=== PATIENT | male | born 1970 | race Caucasian/White ===

== ENCOUNTER 2019-06-01 21:09 | Inpatient (IN) | payer MEDICARE, MEDICAID ==
[~2019-06-01] VITALS: Ht 188 cm; Wt 131.0 kg
[2019-06-01] MEDS ORDERED: ATOR40TA75 PO (22:08)
[2019-06-01] MEDS ORDERED: BENZ-52 PO (22:08)
[2019-06-01] MEDS ORDERED: DESM0.1T2 PO (22:08)
[2019-06-01] MEDS ORDERED: QUET300T53 PO (22:08)
[2019-06-01] MEDS ORDERED: QUET100T2 PO (22:08)
[2019-06-01] MEDS ORDERED: DIVA500T9 PO (22:08)
[2019-06-01] MEDS ORDERED: TRAZ-186 PO (22:08)
[2019-06-01] MEDS ORDERED: RANI15TA PO (22:10)
[2019-06-01] MEDS ORDERED: LISI10TA4 PO (22:10)
[2019-06-01] MEDS ORDERED: MOM 30ML SUSPENSION UDC PO PRN (23:15)
[2019-06-01] MEDS ORDERED: MAALOX 30 ML SUSP *UDC PO PRN (23:15)
[2019-06-01] MEDS ORDERED: ACETAMINOPHEN TAB 650MG DOSE (2X325MG) PO PRN (23:15)
[2019-06-01] MEDS ORDERED: traZODone 50 MG TAB PO PRN (23:15)
[2019-06-02 00:28] VITALS: BP 134/80
[2019-06-02 06:29] VITALS: BP 148/84
[2019-06-02] MEDS: ATORVASTATIN 20 MG TAB PO SCH (08:09)
[2019-06-02] MEDS: DESMOPRESSIN ACETATE 0.1 MG TAB PO SCH ×2 (08:09→20:05)
[2019-06-02] MEDS: FAMOTIDINE 20 MG TAB PO SCH (08:10)
[2019-06-02] MEDS: lisinopriL 10 MG TAB PO SCH (08:10)
[2019-06-02] MEDS: BENZTROPINE 1 MG TAB PO SCH ×2 (08:12→20:05)
--- NOTE | 2019-06-02 09:25 | CR.PDOC ---
General Date of Consultation: Jun 02, 2019 Referring Provider: Sasha Castro MD Consultation REASON FOR CONSULTATION/CHIEF COMPLAINT: Medical management. HISTORY OF PRESENT ILLNESS: 48 years old, male with past medical history of hypertension, hyperlipidemia, asthma on DDAVP for unknown diagnosis was transferred from [facility] for direct admission to our inpatient mental health unit with the diagnosis of suicidal ideations. Patient declines any suicidal or homicidal ideations or plans at the present time. Patient declines any medical complaints such as shortness of breath, chest pain, nausea, vomiting, diarrhea, syncope, polyuria, polydipsia, etc.. ALLERGIES: Please see below. HOME MEDICATIONS: Please see below. PAST MEDICAL HISTORY: , Hypertension, hyperlipidemia, asthma, Patient is also on DDAVP for unknown diagnosis PAST SURGICAL HISTORY: Tonsillectomy, hernia repair FAMILY HISTORY: Family history revealed no history of diagnoses, diabetes or cancer SOCIAL HISTORY: Lives with family history of smoking 1 pack per day for many years. Also smoking marijuana and had some alcohol before coming to ED and [facility] with suicidal ideations REVIEW OF SYSTEMS: CONSTITUTIONAL: . No suicidal ideations or plans. HEENT: Headache, eye pain or ear pain. CARDIOVASCULAR: . No chest pain or palpitation. RESPIRATORY: , No shortness of breath or cough. a. GENITOURINARY: No polyuria or dysuria. MUSCULOSKELETAL: No muscle aches and pains. GASTROINTESTINAL: No nausea, vomiting, diarrhea . SKIN: No rash. NEUROLOGICAL: . No focal motor sensory deficit or headache. PSYCHIATRIC: , Not suicidal or homicidal. ENDOCRINE: Questionable history of diabetes insipidus. HEMATOLOGIC/LYMPHATIC: No history of anemia. ALLERGIC/IMMUNOLOGIC: , No history of his allergies. PHYSICAL EXAMINATION: VITAL SIGNS: Please see below. GENERAL APPEARANCE: Normal. HEENT: PERRLA, extra ocular muscles intact. RESPIRATORY: Clear to A&P. CARDIOVASCULAR: S1, S2, regular. ABDOMEN: , Soft, nontender, bowel sounds present. EXTREMITIES: No clubbing, cyanosis, edema. NEUROLOGICAL: . . No focal motor sensory deficit PSYCHIATRIC: . No suicidal or homicidal ideations. No agitation. LABORATORY DATA: Please see below. ASSESSMENT/PLAN: #1. Suicidal ideation with history of schizoaffective disorder and bipolar disorder Patient is currently asymptomatic, does not offer any complaints of suicidal or homicidal ideations or plans Individual and group counseling Further psychiatric management as per psych #2. Hypertension Under control with current home meds #3. Hyperlipidemia Under control with home meds #4 on DDAVP for possible diabetes as previous Continue present meds #5. Nicotine addiction Smoking cessation counseling was done. Patient declined nicotine replacement Vital Signs/I&O Vital Signs Date Time Temp Pulse Resp B/P (MAP) Pulse Ox O2 Delivery O2 Flow Rate FiO2 06/02/19 08:10 139/72 06/02/19 06:29 97.4 84 18 98 Room Air Allergies Coded Allergies: No Known Allergies (Unverified , 06/01/19) Home Medications Scheduled Atorvastatin Calcium (Atorvastatin Calcium) 40 Mg Tablet, 40 MG PO DAILY, (Reported) Benztropine Mesylate (Benztropine Mesylate) 1 Mg Tablet, 1 MG PO BID, (Reported) Desmopressin Acetate (Desmopressin Acetate) 0.1 Mg Tablet, 0.1 MG PO BID for , (Reported) Divalproex Sodium (Divalproex Sodium ER) 500 Mg Tab.er.24h, 500 MG PO DAILY, (Reported) Lisinopril (Lisinopril) 10 Mg Tablet, 10 MG PO DAILY, (Reported) Quetiapine Fumarate (Quetiapine Fumarate ER) 300 Mg Tab.er.24h, 300 MG PO QPM, (Reported) Ranitidine Hcl (Ranitidine HCl) 150 Mg Tablet, 1 TAB PO DAILY, (Reported) Trazodone HCl (Trazodone HCl) 50 Mg Tablet, 50 MG PO QPM, (Reported) Scheduled PRN Quetiapine Fumarate (Quetiapine Fumarate) 100 Mg Tablet, 100 MG PO DAILY PRN for ANXIETY/AGITATION, (Reported) ROBYN RHODES MD Jun 02, 2019 09:25
[2019-06-02 10:43] VITALS: BP 146/90
[2019-06-02 16:17] VITALS: BP 140/90
[2019-06-02] MEDS ORDERED: QUEtiapine 300 MG XR TABLET(SEROQUEL XR) PO SCH (21:00)
--- NOTE | 2019-06-02 22:00 | MHHPE ---
DATE OF ADMISSION: 06/02/2019 This is a Telemedicine video assessment. CHIEF COMPLAINT: Feels suicidal. SUBJECTIVE: He is 48 years old, has a long history of emotional difficulties, has been diagnosed with schizoaffective disorder. Was seen in [place] and has had several hospitalizations there at [facility] ([facility]). He was there a few days ago, discharged recently, and after a couple of days, started drinking and using cannabis. Says the cannabis may have been laced, he is not quite sure what with. He began being more distraught, angry and upset. Began hearing voices. Says wanted to hurt himself, hurt others as well, but nobody in particular. He had gone to [facility], where he usually goes. He says there were no beds there, so he was transferred here. He is on Seroquel 300 mg in the evening, and also takes 100 mg as needed extra when agitated. He is also on Cogentin at 1 mg twice a day and trazodone at 50 mg at night. Says was on Depakote, that was discontinued recently, and lithium, as he overdosed on them in the last few months, and ended up in the intensive care unit (ICU) for a couple of days. He sys his psychiatrist decided to stop those medicines. Says feels better now that he is off the drugs. Says has friends who drink and use cannabis. He feels he needs new friends. Has support, a girlfriend who he sees fairly regularly. The patient's father lives in the area as well. Says he generally gets along with him. He apparently walked to [facility] just wearing socks, no shoes. This was a few days after discharge. Had been drinking and smoking marijuana. PAST PSYCHIATRIC HISTORY: Has had several inpatient hospitalizations at [facility] in [place]. He is seen as an outpatient in that area as well. Says had admissions from a relatively early age and at least for the last 20 years off and on, per the patient. I do not have access to previous records from [place]. Says he attends his appointments and has a hospice home care coordinator as well. SUBSTANCE ABUSE HISTORY: Has a history of misusing cannabis and alcohol. Says has tried staying away from it. Unclear if he has had any formal substance abuse treatment. MEDICAL HISTORY: Has a history of hypertension, hyperlipidemia, asthma and takes desmopressin. Is unclear why. SOCIAL HISTORY: Lives in the [facility]. He is on his own. He continues to have support from his girlfriend. Says he is in touch with his father fairly regularly. He says he has not had any contact with his mother for a while. He says she lives somewhere in [place]. He says that he graduated high school, but did not go into details. MENTAL STATUS EXAMINATION: He is seen in the presence of staff. He is cooperative. He is quite neat. There is no agitation. No psychomotor retardation. Appears mildly fidgety at times. Answers questions logically and coherently. Affect is restricted in range. Denies any suicidal thoughts or intents. No homicidal ideas or intents at present. Does not appear to be internally preoccupied at present. No overt delusions elicited. Has a limited range of affect. He is alert, oriented to time, place and person. He can spell the word house forwards and backwards. He can recall 2/3 objects after five minutes. Intellect is average at best. Judgment and insight are compromised. ASSESSMENT: 1. Schizoaffective disorder, bipolar type by history, most recent episode depressed, possibly with psychotic features. 2. Cannabis use disorder. 3. Alcohol use disorder. 4. Long history of psychiatric difficulties. 5. Enduring circumstances. Just recently been discharged from the hospital and had started drinking and using cannabis again, and this may have further destabilized his moods, including exacerbating or inducing perceptual disturbances. PLAN: He is admitted to the inpatient psychiatric unit. Patient is on relevant precautions. We will look at obtaining collateral information. We will continue his current medication regimen, including the Seroquel at 300 mg at night. He will be encouraged to engage in activities in the unit. He has been seen by the hospitalist and he will be discharged with followup once he is stable. Coordinating discharge will be important, and part of that can commence from tomorrow. I anticipate a 3-5 day stay. VITAL SIGNS: Blood pressure 140/90, pulse 78, temperature 97.5. The assessment took 30 minutes.
[2019-06-03 06:09] VITALS: BP 137/60
[2019-06-03 06:57] LABS: BASO % 0.4 % (0.0-1.0); EOS # 0.1 10^3/uL (0.0-0.5); EOS % 1.4 % (0.0-3.0); HEMOGLOBIN 15.4 g/dl (13.5-17.5); LYMPH # 1.5 10^3/uL (1.5-5.0); LYMPH % 19.7 % (24.0-44.0); MEAN CORPUSCULAR HEMOGLOBIN 30.1 pg (27.0-33.0); MEAN CORPUSCULAR VOLUME 86.1 fl (80.0-96.0); MONO # 0.5 10^3/uL (0.0-0.8); MONO % 6.3 % (0.0-5.0); NEUTROPHILS # 5.6 10^3/uL (1.5-8.5); NEUTROPHILS % 71.7 % (36.0-66.0); PLATELET COUNT, AUTOMATED 207 10^3/uL (150-450); RED BLOOD COUNT 5.11 10^6/uL (4.30-6.10); WHITE BLOOD COUNT 7.8 10^3/uL (4.0-10.0)
[2019-06-03 07:26] LABS: ALBUMIN 3.6 GM/DL (3.2-5.2); ALT/SGPT 44 U/L (12-78); BILIRUBIN,TOTAL 0.4 MG/DL (0.2-1.0); BLOOD UREA NITROGEN 15 MG/DL (7-18); CALCIUM LEVEL 9.5 MG/DL (8.5-10.1); CARBON DIOXIDE LEVEL 27 MEQ/L (21-32); CHLORIDE LEVEL 104 MEQ/L (98-107); CREATININE FOR GFR 0.82 MG/DL (0.70-1.30); GLOMERULAR FILTRATION RATE > 60.0 (>60); GLUCOSE, FASTING 112 MG/DL (70-100); MAGNESIUM LEVEL 2.1 MG/DL (1.8-2.4); POTASSIUM SERUM 4.5 MEQ/L (3.5-5.1); SODIUM LEVEL 138 MEQ/L (136-145)
[2019-06-03 08:44] VITALS: BP 135/90
[2019-06-03] MEDS: FAMOTIDINE 20 MG TAB PO SCH (08:44)
[2019-06-03] MEDS: lisinopriL 10 MG TAB PO SCH (08:44)
[2019-06-03] MEDS: BENZTROPINE 1 MG TAB PO SCH (08:44)
[2019-06-03] MEDS: DESMOPRESSIN ACETATE 0.1 MG TAB PO SCH (08:44)
[2019-06-03] MEDS: ATORVASTATIN 20 MG TAB PO SCH (08:44)
--- NOTE | 2019-06-03 10:35 | MHDSPDOC ---
[facility] Discharge Summary Discharge Summary DATE OF ADMISSION: Jun 01, 2019 at 23:09 DATE OF DISCHARGE: DISCHARGE DIAGNOSES: 1. . 2. . REASON FOR ADMISSION: CONSULTANTS INVOLVED: TREATMENT AND PROGRESS ON THE UNIT : . HOSPITAL COURSE: DISCHARGE ASSESSMENT: MENTAL STATUS EXAMINATION ON DISCHARGE: Patient is a -year old male, who is . Speech is . Language skills are . Thought processes including: . Thought content: . Abstract reasoning, and computation: . Description of associations: . Description of abnormal or psychotic thoughts: . Judgment: . Insight: . Orientation to . Recent and remote memory: . Attention span and concentration: . Language: . Fund of knowledge: . Mood: . Affect: . MEDICATIONS ON DISCHARGE: - for . - for . - for . PLAN/FOLLOWUP ARRANGEMENTS: . The amount of time spent in the coordination of care for this patient was approximately minutes. Vital Signs/I&Os Vital Signs Date Time Temp Pulse Resp B/P (MAP) Pulse Ox O2 Delivery O2 Flow Rate FiO2 06/03/19 08:44 135/90 06/03/19 06:09 97.8 76 14 98 Room Air Laboratory Data Labs 24H Laboratory Tests 2 06/03/19 06:23: Immature Granulocyte % (Auto) 0.5, Neutrophils (%) (Auto) 71.7H, Lymphocytes (%) (Auto) 19.7L, Monocytes (%) (Auto) 6.3H, Eosinophils (%) (Auto) 1.4, Basophils (%) (Auto) 0.4, Neutrophils # (Auto) 5.6, Lymphocytes # (Auto) 1.5, Monocytes # (Auto) 0.5, Eosinophils # (Auto) 0.1, Basophils # (Auto) 0.0, Nucleated Red Blood Cells % (auto) 0.0, Anion Gap 7L, Glomerular Filtration Rate > 60.0, Calcium Level 9.5, Magnesium Level 2.1, Total Bilirubin 0.4, Aspartate Amino Transf (AST/SGOT) 17, Alanine Aminotransferase (ALT/SGPT) 44, Alkaline Phosphatase 103, Total Protein 7.0, Albumin 3.6, Albumin/Globulin Ratio 1.06 CBC/BMP Laboratory Tests 06/03/19 06:23 Medications Scheduled Atorvastatin Calcium (Atorvastatin Calcium) 40 Mg Tablet, 40 MG PO DAILY, (Reported) Benztropine Mesylate (Benztropine Mesylate) 1 Mg Tablet, 1 MG PO BID, (Reported) Desmopressin Acetate (Desmopressin Acetate) 0.1 Mg Tablet, 0.1 MG PO BID for , (Reported) Divalproex Sodium (Divalproex Sodium ER) 500 Mg Tab.er.24h, 500 MG PO DAILY, (Reported) Lisinopril (Lisinopril) 10 Mg Tablet, 10 MG PO DAILY, (Reported) Nicotine (Nicoderm Cq) 21 Mg/24 Hr Patch.td24, 1 PATCH TOP DAILY for smoking cessation for 28 Days, #28 Quetiapine Fumarate (Quetiapine Fumarate ER) 300 Mg Tab.er.24h, 300 MG PO QPM, (Reported) Ranitidine Hcl (Ranitidine HCl) 150 Mg Tablet, 1 TAB PO DAILY, (Reported) Trazodone HCl (Trazodone HCl) 50 Mg Tablet, 50 MG PO QPM, (Reported) Scheduled PRN Quetiapine Fumarate (Quetiapine Fumarate) 100 Mg Tablet, 100 MG PO DAILY PRN for ANXIETY/AGITATION, (Reported) Allergies Coded Allergies: No Known Allergies (Unverified , 06/01/19) KEVEN BORREGO DO Jun 03, 2019 10:35
[2019-06-03] MEDS ORDERED: NICO21DI6 TOP (10:37)
--- NOTE | 2019-06-03 10:37 | MHDSPDOC ---
[facility] Discharge Summary Discharge Summary DATE OF ADMISSION: Jun 01, 2019 at 23:09 DATE OF DISCHARGE: 06/03/19 Discharge Maximilian Ruffin MRN: N/A Date of : N/A Date of Service: 06/03/2019 Diagnoses Unspecified psychotic disorder. Cannabis use disorder, severe. Alcohol use disorder, unspecified. Psychosocial stressors of uncertain origin. History of Present Illness 48-year-old man with a history of reported schizoaffective disorder, presents after using cannabis that he feels was laced with as yet unknown substances, becoming mildly psychotic after hearing voices stating that he had wanted to hurt himself and was admitted out of an abundance of caution, transferred from [facility]. Consultants Involved Hospitalist/PCP screening Treatment and Progress On The Unit The patient was admitted to the inpatient mental health unit out of an abundance of caution. He was resumed on his home medications of Seroquel 300 mg at night and tolerated this quite well. He had no difficulties attending to groups and generally denied any suicide or homicidal ideation. His resolution was precipitous and quick as would be expected in a substance-induced psychosis. He otherwise did well with no notable problems. Discharge Assessment 48-year-old man with likely substance-induced, psychosis presents after using cannabis that he was claiming was laced with as an yet unknown substance, a common presentation with synthetics, resolving quickly once being resumed on home Seroquel without any major involvement other than resumption of his home medications. The patient at the time of discharge did not meet criteria for involuntary admission/extension due to having a normal mental status exam, fair insight into the situation, They are engaged in the discharge process, as well as being friendly and amenable in behavioral control and havent been engaging in any observed concerning behavior or ideation recently. They decline voluntary extension/admission at this time and must be discharged in good edith, as Im unable to make a case for holding the patient against their will. They may have historical risk factors of admissions and other interactions with psychiatry however, those are not modifiable from a clinical perspective. The patient will need to be discharged in good edith. Mental Status Examination General: Well dressed with good hygiene Speech: Spontaneous and fluid Thought processes: Linear and logical MSK: Smooth and coordinated gait, no signs of tremors or involuntary orofacial movements Thought content: Future orientated Abstract reasoning, and computation: Intact Description of associations: Intact Description of abnormal or psychotic thoughts: Denies any suicidal or homicidal ideation. Denies any auditory or visual hallucinations. Does not appear to be responding to internal stimuli. Does not appear to be endorsing any bizarre or paranoid ideation. Judgment: fair Insight: fair Orientation: Alert and orientated 3 Cognition: Grossly normal Recent and remote memory: Intact Attention span and concentration: Intact Fund of knowledge: Adequate Mood: "okay" Affect: Euthymic with a full range Follow Up The social work team worked during the predischarge meeting in order to evaluate for further issues of lethality address them fully before discharge. They worked on safety planning with the patient's family members in order to ensure that the patient will have a safe and effective discharge. Time Spent The amount of time spent in the coordination of care for this patient was approximately 45 minutes. Monday Vital Signs/I&Os Vital Signs Date Time Temp Pulse Resp B/P (MAP) Pulse Ox O2 Delivery O2 Flow Rate FiO2 06/03/19 08:44 135/90 06/03/19 06:09 97.8 76 14 98 Room Air Laboratory Data Labs 24H Laboratory Tests 2 06/03/19 06:23: Immature Granulocyte % (Auto) 0.5, Neutrophils (%) (Auto) 71.7H, Lymphocytes (%) (Auto) 19.7L, Monocytes (%) (Auto) 6.3H, Eosinophils (%) (Auto) 1.4, Basophils (%) (Auto) 0.4, Neutrophils # (Auto) 5.6, Lymphocytes # (Auto) 1.5, Monocytes # (Auto) 0.5, Eosinophils # (Auto) 0.1, Basophils # (Auto) 0.0, Nucleated Red Blood Cells % (auto) 0.0, Anion Gap 7L, Glomerular Filtration Rate > 60.0, Calcium Level 9.5, Magnesium Level 2.1, Total Bilirubin 0.4, Aspartate Amino Transf (AST/SGOT) 17, Alanine Aminotransferase (ALT/SGPT) 44, Alkaline Phosphatase 103, Total Protein 7.0, Albumin 3.6, Albumin/Globulin Ratio 1.06 CBC/BMP Laboratory Tests 06/03/19 06:23 Medications Scheduled Atorvastatin Calcium (Atorvastatin Calcium) 40 Mg Tablet, 40 MG PO DAILY, (Reported) Benztropine Mesylate (Benztropine Mesylate) 1 Mg Tablet, 1 MG PO BID, (Reported) Desmopressin Acetate (Desmopressin Acetate) 0.1 Mg Tablet, 0.1 MG PO BID for , (Reported) Divalproex Sodium (Divalproex Sodium ER) 500 Mg Tab.er.24h, 500 MG PO DAILY, (R eported) Lisinopril (Lisinopril) 10 Mg Tablet, 10 MG PO DAILY, (Reported) Nicotine (Nicoderm Cq) 21 Mg/24 Hr Patch.td24, 1 PATCH TOP DAILY for smoking cessation for 28 Days, #28 Quetiapine Fumarate (Quetiapine Fumarate ER) 300 Mg Tab.er.24h, 300 MG PO QPM, (Reported) Ranitidine Hcl (Ranitidine HCl) 150 Mg Tablet, 1 TAB PO DAILY, (Reported) Trazodone HCl (Trazodone HCl) 50 Mg Tablet, 50 MG PO QPM, (Reported) Scheduled PRN Quetiapine Fumarate (Quetiapine Fumarate) 100 Mg Tablet, 100 MG PO DAILY PRN for ANXIETY/AGITATION, (Reported) Allergies Coded Allergies: No Known Allergies (Unverified , 06/01/19) KEVEN BORREGO DO Jun 03, 2019 10:37
== END 2019-06-03 15:17 | disposition home or self-care (01) | DRG 885 ==
LOC: M ED 21:09 → M ED INP 23:09 → M PSY 23:09
PROVIDERS: ADMIT Psychiatry & Neurology Psychiatry; ATTEND Psychiatry & Neurology Addiction Medicine
DX: F29 Unspecified psychosis not due to a substance or known physiological condition (principal); F25.1 Schizoaffective disorder, depressive type; F25.0 Schizoaffective disorder, bipolar type; F12.20 Cannabis dependence, uncomplicated; F43.9 Reaction to severe stress, unspecified; F10.10 Alcohol abuse, uncomplicated; I10 Essential (primary) hypertension; E78.5 Hyperlipidemia, unspecified; J45.909 Unspecified asthma, uncomplicated; Z79.899 Other long term (current) drug therapy